=== PATIENT | male | born 1970 | race Caucasian/White ===

== ENCOUNTER 2017-09-12 11:42 | Observation (INO) | payer BC ==
[2017-09-12 13:16] VITALS: BMI 33.5
[2017-09-12] MEDS: NACHLORIDE 0.45% 1,000 ML IV SCH ×3 (13:27→21:21)
[2017-09-12] MEDS: CIPROFLOXACIN 400mg IV 400 MG/200 ML BAG IV SCH ×2 (13:34→20:04)
[2017-09-12 13:42] LABS: Absolute Lymphocytes (CBC) 3.3 K/uL (0.7-4.9); Absolute Monocytes 1.4 K/uL (0.1-1.3); Absolute Neutrophil 11.2 K/uL (1.8-8.0); Basophils % 0.9 % (0-1.3); Eosinophils % 0.4 % (0-4.4); Hematocrit 49.4 % (39.6-49.0); Lymphocytes % 20.8 % (15.3-44.8); MCV 87.8 fL (80-100); MPV 9.6 fL (7.6-11.3); Monocytes % 8.4 % (3.3-12.3); RBC Red Blood Cell Count 5.63 M/uL (4.33-5.43)
[2017-09-12 13:43] LABS: Urine Appearance TURBID; Urine Blood 3+ (NEG); Urine Color RED; Urine Glucose NEGATIVE (NEG); Urine Protein 3+ (NEG); Urine Specific Gravity 1.025 (1.005-1.030)
[2017-09-12 13:45] LABS: Urine Microscopic Reflex ORDER UMIC
--- NOTE | 2017-09-12 13:45 | RAD REPORT ---
EXAM DESCRIPTION: CT - Stone Protocol - 09/12/2017 1:16 pm CLINICAL HISTORY: Abdominal pain. Hematuria COMPARISON: July 2016 TECHNIQUE: Computed axial tomography of the abdomen pelvis was obtained without oral or IV contrast. Lack of IV and oral contrast limits evaluation of solid organs, bowel, and vessels. Coronal reformat babatunde images were obtained and reviewed. All CT scans are performed using dose optimization technique as appropriate and may include automated exposure control or mA/KV adjustment according to patient size. FINDINGS: A renal calculus is not seen. An ureteral calculus is not noted. A bladder calculus is not present. The liver has a diminished attenuation consistent with fatty infiltration. A 14 millimeter cyst is pr esent within the dome. Spleen, pancreas and adrenals appear grossly normal There is no evidence of diverticulitis. A left inguinal hernia contains fat Mild posterior subluxation of L4 on L5 is present. IMPRESSION: Negative for a genitourinary calculus
[2017-09-12 13:48] LABS: Urine Bilirubin NEGATIVE (NEG)
[2017-09-12 14:00] LABS: Urine Bacteria >50 /HPF (NONE SEEN); Urine Culture Reflex Order NOT NEEDED; Urine Mucus LIGHT /HPF (NONE SEEN); Urine RBC >50 /HPF (NONE SEEN)
[2017-09-12 14:06] LABS: Albumin 4.3 g/dL (3.4-5.0); Bilirubin Total 0.5 mg/dL (0.2-1.0); Potassium 4.4 mmol/L (3.5-5.1); Protein, Total 8.3 g/dL (6.4-8.2)
[2017-09-12 16:47] LABS: Albumin 3.9 g/dL (3.4-5.0); Bilirubin Total 0.6 mg/dL (0.2-1.0); Potassium 4.3 mmol/L (3.5-5.1); Protein, Total 8.1 g/dL (6.4-8.2)
[2017-09-12] MEDS: PANTOPRAZOLE 40MG TABLET PO SCH (17:42)
[2017-09-12] MEDS: CEFTRIAXONE/SWI 2gm 2 GM/20 ML SYR IVP SCH (17:43)
[2017-09-12] MEDS: MIRTAZAPINE 15 MG TAB PO SCH (20:03)
[2017-09-12] MEDS: TAMSULOSIN 0.4 MG SR CAP PO SCH (20:03)
[2017-09-13] MEDS: CIPROFLOXACIN 400mg IV 400 MG/200 ML BAG IV SCH ×2 (08:11→21:01)
[2017-09-13] MEDS: PANTOPRAZOLE 40MG TABLET PO SCH (08:11)
[2017-09-13] MEDS: CEFTRIAXONE/SWI 2gm 2 GM/20 ML SYR IVP SCH (08:11)
[2017-09-13] MEDS: SERTRALINE HCL 100 MG TAB PO SCH (08:11)
[2017-09-13] MEDS: BUPROPION HCL XL 150 MG TAB PO SCH (08:11)
[2017-09-13] MEDS ORDERED: HOME MED 1 EA UNK (Omeprazole [Omeprazole] 20 MG) PO SCH (09:00)
--- NOTE | 2017-09-13 13:34 | HP ---
Date of Admission: 09/12/2017 Chief Complaint: Blood in the urine, fever, chills, rigors and sweats. History Of Present Illness: A 46-year-old male was having the above-mentioned symptoms for 2 days. When he was seen in the office, he was found to have evidence of a large amount of blood in the urine , pain in the perineal area, dysuria, compatible with the diagnosis of lower urinary infection and se psis. The patient is admitted. Past Medical History: The patient does not have any chronic illnesses such as diabetes, hypertension , or heart disease. However, he has history of depression for which he takes medications. The patie nt does not have prior history of prostate or other urological problems. Family History: Noncontributory. Personal History: He has no known allergies. Home Medications: 1.Zoloft. 2.Remeron. 3.Wellbutrin. Review of Systems: No chest pain or shortness of breath. Physical Examination: General: Revealed a 46-year-old male with episodes of sweating while examining the patient. HEENT: Otherwise negative. Blood pressure normal. Neck: Supple. JVD negative. Chest: Clear. Heart: Regular. Abdomen: Mild suprapubic area tenderness, otherwise negative. Extremities: No edema. Laboratory: White count 16.1. Chem profile, normal kidney function. Assessment: 1.Probable prostatitis causing hematuria and urinary sepsis. 2.Negative for renal stone. 3.History of chronic depression. Plan: The patient is started on Cipro and Rocephin pending the culture reports. Since the patient h as prostatitis, he may need antibiotics in the IV at least for 3 days and probably 2 week course of o utpatient antibiotics. EMILIO/FAB Voice ID: [id number]
[2017-09-13] MEDS: NACHLORIDE 0.45% 1,000 ML IV SCH (17:18)
[2017-09-13] MEDS: MIRTAZAPINE 15 MG TAB PO SCH (21:01)
[2017-09-13] MEDS: TAMSULOSIN 0.4 MG SR CAP PO SCH (21:01)
[2017-09-14] MEDS: CIPROFLOXACIN 400mg IV 400 MG/200 ML BAG IV SCH (08:06)
[2017-09-14] MEDS: BUPROPION HCL XL 150 MG TAB PO SCH (08:06)
[2017-09-14] MEDS: PANTOPRAZOLE 40MG TABLET PO SCH (08:06)
[2017-09-14] MEDS: SERTRALINE HCL 100 MG TAB PO SCH (08:06)
[2017-09-14 08:27] VITALS: BP 120/69; TEMP 98.2
--- NOTE | 2017-09-14 09:29 | PN ---
Date of Progress Note: 09/13/2017 The patient is generally doing better; however, he still has the significant hematuria and dysuria. He is running low-grade fever. As of yesterday, the urine culture was not complete. The patient was continued on Rocephin as well as Cipro, pending the sensitivity pattern. The patient was told about these findings. EMILIO/FAB Voice ID: [id number] Report ID: [id number]
[2017-09-14 10:08] VITALS: O2SAT 93
== END 2017-09-14 10:49 | disposition home or self-care (01) ==
LOC: 4TH 11:56 → OBSVTOIN 09-13 15:15 → INTOOBSV 09-13 15:15
PROVIDERS: ADMIT Internal Medicine; ATTEND Internal Medicine
DX: A41.9 Sepsis, unspecified organism (principal); N39.0 Urinary tract infection, site not specified; F32.9 Major depressive disorder, single episode, unspecified; N41.9 Inflammatory disease of prostate, unspecified
CPT/HCPCS: 36415; 74176; 76377; 80053; 81003; 81015; 83605; 85025; 87040; 87077; 87086; 87088; 87186; G0103; G0378; J0696; J0744

== ENCOUNTER 2023-12-15 06:12 | Day surgery (SDC) | payer BC, OTHER ==
[2023-12-12 12:06] LABS: Absolute Basophils 0.1 K/uL (0-0.5); Absolute Eosinophils 0.1 K/uL (0-0.5); Absolute Lymphocytes (CBC) 2.7 K/uL (0.7-4.9); Absolute Monocytes 0.6 K/uL (0.1-1.3); Basophils % 1.1 % (0-1.3); Eosinophils % 1.1 % (0-4.4); Hematocrit 45.2 % (39.6-49.0); Hemoglobin 15.1 g/dL (13.6-17.9); Lymphocytes % 36.5 % (15.3-44.8); MCH 28.1 pg (27.0-35.0); MCHC 33.4 g/dL (32.0-36.0); MCV 84.1 fL (80-100); MPV 9.6 fL (7.6-11.3); Monocytes % 7.7 % (3.3-12.3); Neutrophils % 53.6 % (41.7-73.7); Platelets 254 thou/uL (152-406); RBC Red Blood Cell Count 5.37 M/uL (4.33-5.43); Red Cell Distribution Width 14.6 % (12.1-15.2)
[2023-12-12 12:16] LABS: Anion Gap 5.4 mEq/L (5.0-15.0); Potassium 4.4 mEq/L (3.5-5.1)
--- NOTE | 2023-12-14 13:05 | EKG ---
Test Date: 2023-12-12 Test Time: 10:18:26 Pipe Line Inspector: SHELLI MEASUREMENT RESULTS: Intervals: Rate: 69 IN: 158 QRSD: 88 QT: 422 QTc: 452 [place]: P: 40 IN: 158 QRS: 38 T: 49 INTERPRETIVE STATEMENTS: Normal sinus rhythm Possible Left atrial enlargement Borderline ECG Compared to ECG 07/13/2016 13:40:26 No significant changes Electronically Signed On 12-14-23 12:57:24 CDT by Mariano Browning
[2023-12-15] MEDS ORDERED: Ringers Lactate 1,000 ML IV ONE ×2 (06:28→11:49)
[2023-12-15] MEDS ORDERED: OXYMETAZOLINE HCL 0.05% 15ML NAS ONE (07:01)
[2023-12-15] MEDS ORDERED: LIDOCAINE HCL/EPINEPHRINE 20 ML MDV ONE (07:01)
[2023-12-15] MEDS ORDERED: BACITRACIN OINTMENT 14 GM TUBE TOP ONE (07:01)
[2023-12-15] MEDS ORDERED: FENTANYL CITR 100 MCG/2 ML ONE ×3 (07:13→12:14)
[2023-12-15] MEDS ORDERED: LIDOCAINE 1% MPF 5 ML VIAL ONE (07:13)
[2023-12-15] MEDS ORDERED: ROCURONIUM 50 MG/5 ML VIAL IV ONE (07:13)
[2023-12-15] MEDS ORDERED: MIDAZOLAM HCL 2 MG/2 ML INJ ONE (07:13)
[2023-12-15] MEDS ORDERED: propofoL 200 MG/20 ML VIAL IV ONE (07:13)
[2023-12-15] MEDS ORDERED: CEFAZOLIN SODIUM 2 GM/VIAL IVPB ONE ×2 (07:48→08:47)
[2023-12-15] MEDS ORDERED: dexAMETHasone 10 MG/ML VIAL ONE (08:09)
[2023-12-15] MEDS ORDERED: ONDANSETRON 4 MG/2 ML VIAL ONE (08:09)
[2023-12-15] MEDS ORDERED: CEFAZOLIN SODIUM 1 GM/VIAL ONE ×2 (08:09→08:45)
[2023-12-15] MEDS ORDERED: LIDOCAINE HCL/EPINEPHRINE 20 ML MDV SQ ONE ×3 (08:10)
[2023-12-15] MEDS ORDERED: CLINDAMYCIN 900MG/D5W 900 MG/50 ML IVPB IV ONE (09:09)
[2023-12-15] MEDS ORDERED: KETOROLAC 30 MG/ML INJ ONE (10:19)
[2023-12-15] MEDS ORDERED: MEPERIDINE HCL 25 MG/ML SYR ONE (11:42)
[2023-12-15] MEDS ORDERED: HYDROMORPHONE HCL 1 MG/ML INJ ONE (11:49)
[2023-12-15] MEDS ORDERED: HYDROMORPHONE HCL 2 MG/ML inj ONE (12:06)
[2023-12-15] MEDS ORDERED: LABETALOL 20 MG/4ML SYRINGE IV ONE (12:28)
[2023-12-15 14:17] VITALS: BP 134/95; TEMP 98.4; O2SAT 95
--- NOTE | 2023-12-20 00:57 | OP ---
Date of Procedure: 12/15/2023 Surgeon: CITLALY JOHNSON Preoperative Diagnoses: 1. Chronic obstructive sleep apnea. 2. Uvulitis. 3. Bilateral nasal septal deviation. 4. Bilateral hypertrophy of inferior nasal turbinates. Postoperative Diagnoses: 1. Chronic obstructive sleep apnea. 2. Uvulitis. 3. Bilateral nasal septal deviation. 4. Bilateral hypertrophy of inferior nasal turbinates. Procedures: 1. Drug-induced sleep endoscopy. 2. Uvuloplasty. 3. Endoscopic septoplasty. 4. Bilateral submucosal inferior turbinate Coblation. 5. Hyoid myotomy and suspension. Anesthesia: General endotracheal anesthesia was administered. I also infiltrated approximately 15 mL of 1% lidocaine with 1:100,000 epinephrine into bilateral nasal septal mucosa, bilateral inferior turbinate mucosa, soft palate and uvula, and the two neck incisions. Estimated Blood Loss: Less than 30 mL. Specimens: None. Findings: 1. Drug endoscopy revealed predominant anterior/posterior closure pattern with no evidence of concentric collapse and mild lateral wall collapse. 2. Left nasal septal deviation with 2 septal spurs, 1 cartilaginous and the other involving the posterior vomer, bilateral inferior turbinate hypertrophy 3/4, redundant soft palate and uvula, normal hyoid bone. Complications: None. Disposition: Stable. The patient tolerated the procedure well. Indications For Procedure: The patient is a pleasant 53-year-old male with severe snoring, severe bilateral nasal obstruction, and chronic obstructive sleep apnea, who had attempted to wear a CPAP over the past 10 years and found that he is currently unable to use it anymore despite trying multiple masks. Upon examination in my office, patient had redundant Type 2-3 Mancini soft palate, nice hyoid position, and moderately left deviated septum and moderate bilateral inferior turbinate hypertrophy. These were indications to bring the patient to operative suite for the above-mentioned procedure. He understood and all questions were answered. Risks versus benefits and complications were explained in detail, and a consent form was signed, which was placed in the chart. Description Of Procedure: Patient was transferred from the preoperative holding area to the operative suite by Department of Anesthesia and then he was given approximately 100 mg of propofol IV. The patient fell asleep with ease and then, I was able to insert the flexible laryngoscope back to the level of the velopharynx. After observing his airway for approximately 5 minutes, I was able to see that as he was waking up, we could see predominant anterior/posterior closure with slight lateral wall collapse and no evidence of concentric collapse. The scope was completely removed and this video was recorded. The patient was then intubated. The table was rotated 180 degrees and a shoulder roll was placed. A McIvor retractor was introduced to the right oral commissure and directed along the endotracheal tube and suspended from the Carter stand. A modified uvulectomy was performed by trimming the distal uvula with curved Metzenbaum scissors. A stump of uvula was left behind. The incision site was then reapproximated with 3-0 Vicryl on an SH-1 needle in a simple interrupted fashion. I then used the Coblation wand on a setting of 5 for ablation and 3 for coagulation, and I performed Coblation of the soft palate in a triangular fashion. The area was diffusely treated with the coblation wand that extended approximately 4.0 cm across, just superior to the anterior pillar of the soft palate and then superiorly forming a triangle that extended approximately 4.0 cm superiorly with the apex of the triangle midline. The goal is to help tightening of this area to help lift the soft palate and open his airway. Saline irrigation was introduced in the oral cavity and removed with suction Bovie. I infiltrated approximately 5 mL of 1% lidocaine with 1:100,000 epinephrine at the area of the soft palate and uvula. I then turned my attention to the patient's septum. I injected approximately 5 mL of 1% lidocaine with 1:100,000 epinephrine into bilateral nasal septal mucosa and inferior turbinate mucosa. Afrin-soaked nasal pledgets were introduced in bilateral nasal cavities, and the patient was sterilely prepped and draped. The pledgets were removed and I made a modified [place] incision into the left nasal septal mucosa and then, I elevated the mucosa off the cartilage and bone. A crossover incision was made with a #15 blade scalpel and then I elevated the right-sided mucosa off to the cartilage and bone. The obstructive cartilage and bone were removed with the help of a Hills elevator, a scalpel, hammer and chisel, and Son forceps. Once the obstructive portions were removed, the nasal septal mucosa was reapproximated with a 4-0 plain gut suture in a box like fashion, followed by incisional reapproximation with 4-0 plain gut suture in a continuous running fashion. To help with hemostasis, I inserted PosiSept packing into bilateral nasal cavities followed by Murphy splints covered with antibiotic ointment and splints were secured to the caudal septum with 2-0 Prolene suture. A mustache dressing was placed. Next, the 2 neck incisions were infiltrated with approximately 5 mL of 1% lidocaine with 1:100,000 epinephrine and then, the neck was then sterilely prepped and draped. A submental incision was made with a #15 blade scalpel into the subdermal plane and then I switched to monopolar electrocautery and dissected down to the submental area of the mandible. The periosteum was elevated with a Hills. I then drilled 2 port holes utilizing the drill bit and then I inserted the screws with the passer threads into both holes. The 2 holes were just shy of midline, 1 on the right and 1 on the left. The passer threads were then oriented in the 12 o'clock and 6 o'clock positions. I then made an incision directly over the hyoid bone with a #15 blade scalpel down to the subplatysmal plane and then switched to monopolar electrocautery and LigaSure, and I dissected down to the hyoid bone. The periosteum was elevated slightly from the hyoid bone and then I placed a cricoid hook around the hyoid midline and elevated the hyoid anteriorly. I then took the large metal hook suture passer, and I passed this from inferior to superior direction, posterior to the hyoid bone and posterior to the cricoid hook. I then passed the permanent threads through the suture passer and it was brought out into the inferior edge of the incision. I then placed hinged knots to secure the permanent threads around the hyoid bone. Next, two subplatysmal tunnels were created with a long hemostat and the permanent threads were tunneled up from the hyoid bone to the screws located in the sub mentum and tied with one knot after removing the shoulder roll. I was able to suspend the hyoid 25 mm and once satisfied with the position, I tightened the screws down. The incisions were irrigated with 900 mg of clindamycin mixed with 1 L of saline and then after irrigation, I reapproximated the platysma with 3-0 Vicryl in a simple interrupted fashion. The subcutaneous dermal tissue was reapproximated with 4-0 Monocryl in a simple interrupted fashion followed by subcuticular closure of both incisions with 4-0 Monocryl suture. A jaw/neck dressing was then wrapped around the patient's head and the patient was transferred by Department of Anesthesia in stable condition where he was subsequently awakened, extubated, and transferred to postoperative care unit and subsequently discharged home on antibiotic and analgesic medications. He will follow up in 1 week or sooner if needed. AMOR/FAB Voice ID: [id number] Report ID: [id number] [id number]
== END 2023-12-15 14:15 | disposition home or self-care (01) ==
LOC: OR 06:12
PROVIDERS: ATTEND Otolaryngology Facial Plastic Surgery
PROC: 0CBNXZZ Excision of Uvula, External Approach (ICD-10-PCS; 2023-12-15)
PROC: 0C53XZZ Destruction of Soft Palate, External Approach (ICD-10-PCS; 2023-12-15)
PROC: 0CJY8ZZ Inspection of Mouth and Throat, Via Natural or Artificial Opening Endoscopic (ICD-10-PCS; principal; 2023-12-15 07:30)
PROC: 09BM8ZZ Excision of Nasal Septum, Via Natural or Artificial Opening Endoscopic (ICD-10-PCS; 2023-12-15 07:30)
PROC: 09BL4ZZ Excision of Nasal Turbinate, Percutaneous Endoscopic Approach (ICD-10-PCS; 2023-12-15 07:30)
PROC: 0NS Head and Facial Bones, Reposition (ICD-10-PCS; 2023-12-15 07:30)
DX: G47.33 Obstructive sleep apnea (adult) (pediatric) (principal); J34.2 Deviated nasal septum; J34.3 Hypertrophy of nasal turbinates; K12.2 Cellulitis and abscess of mouth
CPT/HCPCS: 42975; 30520; 30802; 21685; 42140; 93005; 85025; 80048; 36415; 88300; 42299; J2704; J2001; J2250; J1170 ×2; J3010 ×3; J1100; J2175; J2405; C1713; J7120 ×2; J0690 ×2